=== PATIENT | male | born 1960 | race Caucasian/White ===

== ENCOUNTER 2016-06-25 11:22 | Emergency (ER) | payer OTHER ==
[2016-06-25 11:45] LABS: BASO % 0.5 % (0.2-1.2); EOS # 0.7 10_X3_uL (0.0-0.5); EOS % 10.9 % (0.8-7.0); GRAN # 3.7 10_X3_uL (1.8-5.4); GRAN % 61.9 % (34.0-67.9); HEMOGLOBIN 12.2 g/dL (13.7-17.5); LYMPH % 16.6 % (21.8-53.1); MEAN CORPUSCULAR HEMOGLOBIN 27.6 pg (27.0-33.0); MEAN CORPUSCULAR HGB CONC 34.9 g/dL (32.0-36.0); MEAN CORPUSCULAR VOLUME 79.2 fL (79-92); MEAN PLATELET VOLUME 10.1 fl (7.5-11.5); MONO # 0.6 10_X3_uL (0.3-0.8); MONO % 10.1 % (5.3-12.2); PLATELET COUNT 72 x10_3/uL (163-337); RED BLOOD COUNT 4.42 x10_6/uL (4.6-6.1); RED CELL DISTRIBUTION WIDTH 25.5 % (11.6-14.4)
[2016-06-25 11:59] LABS: URINE BILIRUBIN 2+ (NEGATIVE); URINE BLOOD NEGATIVE (NEGATIVE); URINE GLUCOSE (UA) NORMAL (NORMAL); URINE KETONE TRACE (NEGATIVE); URINE LEUKOCYTE ESTERASE TRACE (NEGATIVE); URINE NITRATE NEGATIVE (NEGATIVE); URINE PROTEIN TRACE (NEGATIVE)
[2016-06-25 12:06] LABS: URINE BACTERIA TRACE (NONE SEEN); URINE RBC RARE /[HPF] (0-2); URINE SQUAMOUS EPITHELIAL CELL 0-10 /[HPF] (NONE SEEN); URINE WBC RARE /[HPF] (0-3)
[2016-06-25 12:07] LABS: ALKALINE PHOSPHATASE 144 U/L (50-136); ALT/SGPT 85 U/L (7.53-40.17); AST/SGOT 103 U/L (6.66-35.34); BILIRUBIN,TOTAL 7.19 mg/dL (0.0-1.0); BLOOD UREA NITROGEN 11 mg/dL (7-18); CALCIUM 8.5 mg/dL (8.7-10.7); CARBON DIOXIDE 27 mmol/L (21-32); CREATININE 0.5 mg/dL (0.6-1.3); GLUCOSE,RANDOM 105 mg/dL (70-99); POTASSIUM 4.3 mmol/L (3.5-5.1); SODIUM 137 mmol/L (136-145); TOTAL PROTEIN 6.9 gm/dL (6.4-8.2)
[2016-06-25 13:04] LABS: INR 1.2 (0.9-1.1); PARTIAL THROMBOPLASTIN TIME 28.6 SECONDS (21.3-29.3); PROTHROMBIN TIME (PATIENT) 12.3 SECONDS (9.9-11.1)
== END 2016-06-25 13:15 | disposition short-term general hospital (02) ==
LOC: ER 11:22
PROVIDERS: Emergency Medicine
DX: K74.60 Unspecified cirrhosis of liver (principal); K72.90 Hepatic failure, unspecified without coma; R17 Unspecified jaundice; Z86.19 Personal history of other infectious and parasitic diseases; I85.10 Secondary esophageal varices without bleeding; Z98.890 Other specified postprocedural states; R53.83 Other fatigue; F17.210 Nicotine dependence, cigarettes, uncomplicated; Z88.0 Allergy status to penicillin; Z79.899 Other long term (current) drug therapy
CPT/HCPCS: 36415; 51701; 80053; 80307; 81001; 82140; 85025; 85610; 85730; 96360; 96361; 99070; 99285-25